=== PATIENT | female | born 1935 | race Caucasian/White ===

== ENCOUNTER 2018-01-14 07:16 | Inpatient (IN) ==
[~2018-01-14 07:16] MED LIST: Vancomycin 1,000 MG, Sodium Chloride IRRigation 1,000 ML IR ONE
[2018-01-14] MEDS ORDERED: CeFAZolin Syr 2,000MG/20 ML 2,000 MG/20 ML SYRINGE IVPB ONE (07:58)
[2018-01-14] MEDS ORDERED: Albuterol 2.5 MG/3 ML NEBULIZER IH ONE ×2 (07:58→13:42)
[2018-01-14] MEDS ORDERED: Ringers Solution, Lactated 1,000 ML IVC SCH (08:00)
--- NOTE | 2018-01-14 08:04 | History & Physical Report ---
Date of Encounter: 01/14/18 Time of Encounter: 08:00 24 Hour HP Update - Instructions Instructions: If the History and Physical is less than 30 days old and was completed prior to A.M. admission and or procedure and has NOT been updated on calendar day of procedure please complete this update prior to performing procedure. - Update Patient reports changes in Medical Condition: No Changes in examination, assessment, or condition: No Changes in Medication: No Preop tests/diagnostics Reviewed: Yes Surgery Remains Indicated: Yes Consent for Planned Operative Procedure(s) Verified: Yes - Pre-Operative Checklist Preoperative Checklist Indicated: Yes Prophylactic Antibiotic Ordered: Yes (Vancomycin due to MRSA risk) Home Medications Include Beta Brina: No Beta Brina Taken Today (Day of Surgery): No Beta Brina Taken Yesterday (Day Prior to Surgery): No Is VTE Prophylaxis Indicated?: Yes
[2018-01-14] MEDS ORDERED: Heparin 1,000 UNITS/500 mL 1,500 ML ONE (08:06)
--- NOTE | 2018-01-14 08:41 | Anesthesia Evaluation PreOp ---
Date of Encounter: 01/14/18 Time of Encounter: 08:39 - Past History Planned Operation: Fem-Fem bypass Cardiac History: HTN, Hyperlipidemia, Cardiac Surgery (CABG x 5 2009), Cardiac Stent, Other (PVD/PAD several stents pt unsure of locations. 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: Other (anxiety, depression) Other Medical History: Thyroid (hypo), Other (RA with good ROM neck (steroids 2017)) Anesthesia History: No Prior Anesthetic Complications, Past Anesthesia : No Alcohol Use: none Drug use: none Medications and Allergies ALPRAZolam [Xanax 0.5 MG Tablet] 0.5 mg PO BID 01/06/18 [History] Atorvastatin [Lipitor] 40 mg PO DAILY 01/06/18 [History] Azathioprine [Imuran] 50 mg PO BID 01/06/18 [History] Clopidogrel [Plavix] 75 mg PO DAILY 01/06/18 [History] Levothyroxine [Synthroid] 125 mcg PO QAM 01/06/18 [History] amLODIPine [Norvasc] 10 mg PO DAILY 01/06/18 [History] Nitroglycerin [Nitrostat] 0.4 mg SL Q5M PRN 01/14/18 [History] Psyllium Husk [Metamucil] 660 gm PO DAILY 01/14/18 [History] 3 Allergy/AdvReac Type Severity Reaction Status Date / Time Iodinated Contrast- Oral and Allergy Hives Verified 01/14/18 07:50 IV Dye - Meds/Allergy Pre-op Review Medications Reviewed: Yes Allergies Reviewed: Yes Beta Blockers on Current Med List: No Anesthesia Results - Labs Laboratory Tests 12/31/17 12/31/17 12/31/17 11:49 11:49 11:49 WBC 4.3 Hgb 13.7 Hct 41.8 Plt Count 267 PT 11.0 INR 1.0 APTT 37.9 H Sodium 137 Potassium 4.5 Chloride 102 Carbon Dioxide 31 H BUN 14 Creatinine 0.65 Est GFR (Non-Af Amer) > 60 - Imaging EKG: report reviewed, image reviewed, other (LBBB) Additional studies: Stress test 10/2017 no ischemia Carotid U/S 2017 R side 60-79% stenosis 10/2017 Impressions: LVEF 55%. Normal LV chamber size and function. Mild concentric left ventricular hypertrophy. Mild left ventricular diastolic dysfunction. Atypical septal motion consistent with post-operative status. Normal right ventricular structure and function. No evidence of pulmonary hypertension. No significant valvular dysfunction. Left Ventricular Wall Motion: Rest Echo Findings All wall segments showed normal motion. Findings: Study Quality * Technically adequate exam. ECG Findings * Normal sinus rhythm. Left Ventricle * LVEF 55%. * Normal LV chamber size and function. * Mild concentric left ventricular hypertrophy. * Mild left ventricular diastolic dysfunction. * Atypical septal motion consistent with post-operative status. Right Ventricle * Normal right ventricular structure and function. Left Atrium * Mildly dilated left atrium. Right Atrium * Normal right atrial size. Aortic Valve * Trileaflet aortic valve. * Mildly calcified aortic valve leaflets. * No aortic regurgitation. * No aortic stenosis. Mitral Valve * Mild mitral annular calcification. * No mitral stenosis. * No mitral regurgitation. Tricuspid Valve * Normal tricuspid valve structure and function. * Trace tricuspid regurgitation. * No evidence of pulmonary hypertension. Pulmonic Valve * Normal pulmonic valve structure and function. * No pulmonic regurgitation. Aorta * Normally sized aortic root. Pericardium * The pericardium appears normal. IVC * Normal IVC dimensions and inspiratory collapse. Pulmonary Artery * Normal visualized portions of the main pulmonary artery. Angiogram Impressions: The bilateral renal arteries are patent. The aorta is hemodynamically well maintained without stenosis. A pre-existing right common iliac artery stent is patent. The right external iliac artery is patent. The right common iliac artery is patent The right superficial femoral artery is occluded and reconstitutes at the above-knee popliteal artery. The right anterior tibial artery is occluded beyond its origin. The right tibioperoneal trunk, posterior tibial and peroneal arteries are patent. A pre-existing left common iliac artery stent is occluded. A pre-existing left external iliac artery stent is patent. A pre-existing left common femoral artery stent has a 95% stenosis at the distal portion. A pre-existing left superficial femoral artery stent is patent. A pre-existing left popliteal artery stent is occluded. The left popliteal artery reconstitutes below the knee. The left anterior tibial artery is occluded. The left peroneal artery is not clearly visualized. The left posterior tibial artery is patent. No complications. Anesthesia Exam Vital Signs/O2 Sat/Glucose, Most Recent Temp Pulse Resp BP Pulse Ox 97.7 F 49 18 131/59 99 01/14/18 08:24 01/14/18 08:24 01/14/18 08:24 01/14/18 08:24 01/14/18 08:24 Height: 1.63 Weight: 65 kg NPO (# of Hours): > 8 hr - HEENT Pupil (Motor): Pupils equal Mallampati: II Denture Type: Upper: Complete, Lower: Complete Oral Opening: Greater than 3 - SITE WORKER LOC: Oriented SITE WORKER Motor: Normal RUE, Normal LUE, Normal RLE, Normal LLE, Normal Face SITE WORKER Sensory: Normal: RUE, LUE, RLE, LLE, Face - Cardiac Rhythm: Regular Murmur: None - Pulmonary Breath Sounds: bilateral Clear Respiratory Effort: Symmetrical Anesthesia Assess/Plan ASA Score: 4 Modified Ray Scale for Level of Consciousness: Cooperative, oriented, and tranquil Anesthetic Plan: General Monitoring Plan: Standard Monitors, A-Line Recovery Plan: PACU
[2018-01-14] MEDS ORDERED: Acetaminophen IV 1,000 MG/100 ML INFUS..BTL ONE (08:59)
[2018-01-14] MEDS ORDERED: Famotidine 20 MG/2 ML VIAL ONE (08:59)
[2018-01-14] MEDS ORDERED: Vancomycin 1,000 MG VIAL ONE (09:50)
[2018-01-14 11:21] LABS: ABG Base Excess 1 mEq/L (-2 to 3); ABG Chloride 106 mEq/L (98-107); ABG Glucose 127 mg/dL (60-95); ABG HCO3 27 mEq/L (21-27); ABG Ionized Calcium 1.16 mmol/L (1.15-1.35); ABG Oxygen Saturation 100 % (95-98); ABG PCO2 44 mmHg (35-45); ABG PH 7.39 pH Units (7.32-7.45); ABG PO2 415 mmHg (85-104); ABG TCO2 28 mEq/L (20-26)
[2018-01-14] MEDS ORDERED: Protamine Sulfate 50 MG/5 ML VIAL IVP ONE (13:11)
[2018-01-14] MEDS ORDERED: Ondansetron 4 MG/2 ML VIAL IVP ONE (13:42)
[2018-01-14] MEDS ORDERED: *HR* HYDROmorphone 2 MG TABLET PO PRN (13:42)
[2018-01-14] MEDS ORDERED: *HR* OxyCODONE Immed Rel 5 MG TABLET PO PRN ×2 (13:42→15:02)
--- NOTE | 2018-01-14 13:58 | Operative Note ---
Date of procedure: 01/14/18 Pre-op diagnosis: Peripheral vascular disease with disabling claudication Post-op diagnosis: same Procedure: 1. Right common femoral to left common femoral artery bypass with 6 mm ring reinforced PTFE graft. 2. Right common femoral artery endarterectomy. 3. Left common femoral artery and deep femoral artery endarterectomy. Complications: None Surgeon: Brent Walsh Was there an patent legal assistant present: Yes Scenic Artist: Anuj Odonnell Estimated blood loss (cc): 350 Specimen: Femoral plaque Condition: stable Disposition: PACU Procedure in Detail: Indications: The patient is an 82 year old female with a history of hypertension, hyperlipidemia, coronary artery disease, carotid stenosis and peripheral vascular disease with disabling claudication. The patient is undergone multiple prior angiograms and heart catheter at another facility. She said multiple prior left lower extremity stent placement. She underwent an angiogram and was found have occlusion of her iliac stents. Revascularization was recommended to reduce her disabling claudication. Procedure: The patient was identified in the preoperative area. The risks, benefits, and alternatives of the procedure were discussed. All questions were answered. The patient was taken to the operating room and placed in supine position on the operating room table. After the induction of general endotracheal anesthesia, he was cleaned and draped in normal sterile fashion. An oblique incision was made over the right groin sharply. Hemostasis was obtained with electrocautery. Through a process of blunt, sharp and electrocautery dissection, the distal right external iliac artery and femoral arteries were dissected circumferentially and surrounded with vessel loops. Of note significant chronic inflammatory changes as well as evidence of prior closure devices are present along the right femoral vessels. In addition several Prolene sutures were also noted to be present as well as hemoclips has evidence of prior arterial repair. An oblique incision was then made over the left groin sharply. Hemostasis was obtained with electrocautery. Through a process of blunt, sharp, and electrocautery dissection, the left femoral vessels were dissected circumferentially and surrounded with vessel loops. Significant inflammatory changes were noted along the left femoral vessels. In addition multiple sutures related to prior closure device placement were noted. A graft was tunneled between the right and left femoral incisions. The patient received 5000 units of intravenous heparin and additional heparin throughout the procedure to maintain adequate anticoagulation. A longitudinal arteriotomy was made in the right common femoral artery and extended to the origin of deep femoral artery. Strong pulsatile flow was noted from the external iliac artery. Extensive, significantly occlusive femoral artery plaque was identified. Using a dental freer, a right common femoral artery endarterectomy was then performed. The endpoints was inspected and no elevated flap was noted. The lumen was flushed with heparinized saline. The graft was cut to fit the arteriotomy and then sutured in place with a running 6- 0 Prolene. The vessels were flushed through the graft. Heparinized saline was infused into the graft lumen. The graft was clamped with an atraumatic clamp. Flow was restored in the left femoral vessels. A longitudinal arteriotomy was then made in the left common femoral artery and then extended into the deep femoral artery. An occlusive right common and deep femoral artery plaque was encountered. Release of the vessel loop revealed limited antegrade flow and sluggish retrograde left deep femoral artery flow. Using a dental freer, a left common femoral artery endarterectomy and a left deep femoral artery endarterectomy were performed. Proximal and distal endpoints were inspected and no elevated flaps were noted. Significant retrograde flow was noted through the deep femoral artery. The distal end of the graft was then cut to fit the arteriotomy. The graft was anastamosed with a running 6-0 Prolene. Prior to completing the anastamosis, the right femoral vessels were flushed through the graft anastamosis and heparin was infused into the lumen. The anastamosis was completed and flow was restored in the right lower extremity. Thrombin and gelfoam were used at the proximal anastamosis. Polyphasic signals were noted distal to the anastamoses. The wounds were irrigated with antibiotic-containing saline. Platelet rich and platelet poor plasma were infused into the wounds. Meticulous hemostasis was obtained throughout the wound with electrocautery. Wounds were reapproximated with layers of 2-0 and 3-0 Vicryl. Skin was reapproximated with 3-0 Monocryl. Sterile dressing was applied. The patient was extubated and taken to recovery room in stable condition.
[2018-01-14] MEDS: *HR* Morphine 2 MG/ML SYRINGE IVP PRN ×3 (14:09→14:33)
--- NOTE | 2018-01-14 14:43 | Anesthesia Evaluation Post Op ---
Date of Encounter: 01/14/18 Time of Encounter: 14:40 - Vital Signs Vital Signs: Vital Signs/O2 Sat/Glucose, Most Current Temp Pulse Resp BP Pulse Ox 01/14/18 14:32 97.6 F 75 14 136/48 94 01/14/18 14:22 78 14 118/46 97 01/14/18 14:12 74 14 132/51 95 01/14/18 14:02 97.4 F L 82 16 116/53 99 - Lungs Lungs: Clear Ascult./Percussion - Airway Airway: Non-obstructed - Cardiovascular Regular Rate - Mental Status Mental Status: Alert & Oriented, Answers Appropriately - Pain Pain Scale: 0 - Nausea Vomiting Nausea Vomiting: Not Present - Hydration Hydration: Ice chips, Cornelius catheter - Discharge PostOp Status: Transfer Patient to floor
--- NOTE | 2018-01-14 14:49 | Operative Note ---
Date of procedure: 01/14/18 Pre-op diagnosis: Disabling claudication Post-op diagnosis: same Procedure: Bilateral common femoral artery endarterectomy Right to left femoral-femoral bypass graft with 6 mm PTFE Complications: None Anesthesia: GETA Surgeon: Brent Walsh Co-Surgeon: Anuj Odonnell Was there an assistant refinery operator present: No Estimated blood loss (cc): 350 Specimen: Femoral plaque Condition: stable Disposition: PACU Procedure in Detail: History Zeenat Dunbar is an 82-year-old white female with known severe peripheral vascular occlusive disease. She has undergone multiple previous endovascular interventions at an outside hospital. She now comes to the operating room for an inflow procedure as the left iliac system is occluded. Procedure After informed consent was obtained the patient was taken the operating room. General endotracheal anesthesia was established. The abdomen groin and upper thighs were sterilely prepped and draped. A timeout protocol was observed. A 2 surgeon approach was utilized for this procedure due to the patient's comorbid conditions. Also because of the need for complex intraoperative decision-making and to minimize palpitations associated with prolonged general anesthesia and blood loss. Oblique incisions were then made in the groin bilaterally. Dissection was carried down to the common femoral artery. The femoral artery was noted to be markedly diseased bilaterally. There is a very dense and expansive calcific plaque in the right femoral system. There is also significant plaque in the left common femoral system. A deep saphenous tunnel was created and then 5000 units of heparin was administered intravenously. After 3 minute delay the vessels were then clamped. Using an 11 blade knife and Stanley scissors both arteries were open on the anterior surface of the common femoral artery. A formal endarterectomy was then performed of each vessel. On the right side there was a reticulating dense and expansive plaque. This required extension of the plaque removal up to the level of the inguinal ligament and distally to the femoral bifurcation. After the endarterectomy the vessels were carefully inspected for any residual debris. With this done the femoral-femoral anastomosis was initiated. The donor site was the right side and so the anastomosis was initiated with this vessel first. This was done in an endograft to side of artery configuration using 6-0 Prolene suture. Once the length of the graft could be accurately assessed the graft was trimmed and then the left femoral anastomosis was initiated for the recipient site. After appropriate backbleeding and flushing the graft was opened. Pulsatile flow was then restored into the left lower extremity. Patient had significant amount of bleeding from the needle sites bilaterally. This required the administration of protamine as well as multiple applications of topical thrombostatic agents. Eventually the hemostasis was secured and the wounds were irrigated with antibiotic-containing solution. There were then closed in layers using absorbable suture. Dry sterile dressings were applied. Patient was extubated in the operating room and taken to the recovery room in stable condition. There were no intraoperative complications.
[2018-01-14] MEDS ORDERED: Naloxone 0.4 MG/ML INJ IVP PRN (15:02)
[2018-01-14] MEDS ORDERED: OXYCODONE Oral CONC 10 MG/0.5 ML ORAL.SYG SL PRN ×2 (15:02)
[2018-01-14] MEDS ORDERED: Nitroglycerin 0.4 MG TAB.SUBL SL PRN (15:02)
[2018-01-14] MEDS ORDERED: *HR* Labetalol 20 MG/4 ML SYRINGE IVP PRN (15:02)
[2018-01-14] MEDS ORDERED: *HR* HYDROcodone/Acet 5/325 mg TABLET PO PRN (15:02)
[2018-01-14] MEDS ORDERED: Acetaminophen 325 MG TABLET PO PRN (15:02)
[2018-01-14] MEDS ORDERED: Ondansetron 4 MG/2 ML VIAL IVP PRN (15:02)
[2018-01-14] MEDS ORDERED: 0.9 % Sodium Chloride 1,000 ML IVC SCH (15:02)
[2018-01-14] MEDS: *HR* Metoprolol 5 MG/5 ML VIAL IVP SCH (16:51)
[2018-01-14] MEDS ORDERED: Vancomycin 1,000 MG in D5% in Water 250 ML IVPB ONE ×2 (20:30→21:45)
[2018-01-14] MEDS: ALPRAZolam 0.5 MG TABLET PO SCH (21:22)
[2018-01-15] MEDS: *HR* Metoprolol 5 MG/5 ML VIAL IVP SCH ×2 (00:08→06:06)
[2018-01-15 03:57] LABS: Basophils % 0.1 %; Hemoglobin 9.3 g/dL (11.5-15.4); Immature Granulocytes % 0.7 % (0-4); Lymphocytes # 0.5 K/mcL (0.6-4.6); Lymphocytes % 5.8 %; Mean Corpuscular HGB Conc 33.2 g/dL (31.6-35.5); Mean Corpuscular Hemoglobin 33.6 pg (28.0-33.3); Mean Corpuscular Volume 101.1 fL (83.0-100.0); Mean Platelet Volume 9.3 fL (9.4-12.4); Monocytes # 0.7 K/mcL (0.0-1.3); Monocytes % 9.1 %; Neutrophils # 6.8 K/mcL (1.6-8.9); Platelet Count 197 K/mcL (140-400); Red Blood Count 2.77 M/mcL (3.82-4.97); Red Cell Distribution Width 14.6 % (11.5-14.5); Segmented Neutrophils % 84.3 %
[2018-01-15 04:15] LABS: BUN/Creatinine Ratio 18 (6-26); Blood Urea Nitrogen 12 mg/dL (8-23); Calcium 8.1 mg/dL (8.6-10.3); Carbon Dioxide 23 mEq/L (23-29); Chloride 104 mEq/L (98-107); Glucose 170 mg/dL (70-105); Osmolality,Calculated 284 (280-300); Potassium 4.6 mEq/L (3.5-5.1); Sodium 135 mEq/L (136-145); eGFR For Non-African Americans > 60 (> 60)
[2018-01-15] MEDS ORDERED: *HR* Heparin 5,000 UNIT/ML VIAL SQ SCH ×2 (06:00)
--- NOTE | 2018-01-15 06:59 | Discharge Summary ---
Orders not resulted at time of discharge: Pending orders 01/14/18 14:06 Surgical Pathology [PTH] Routine Date of Encounter: 01/15/18 Time of Encounter: 07:40 - Discharge Diagnosis (1) Atherosclerosis of [place] arteries of extremities with intermittent claudication, bilateral legs Priority: Primary Status: Chronic Comments: The patient is postoperative day #1 after a femoral endarterectomy and femorofemoral bypass. She is tolerating diet well. She reports adequate pain control. She is ambulating without difficulty. She will be discharged to home in stable condition today. (2) Essential hypertension Priority: Secondary Status: Chronic Comments: She was counseled regarding atherosclerotic risk factor reduction. (3) Mixed hyperlipidemia Priority: Secondary Status: Chronic (4) CAD (coronary artery disease), [place] coronary artery Priority: Secondary Status: Chronic Qualifiers: [place] vs. transplanted heart: [place] heart Associated angina: without angina Qualified Code(s): I25.10 - Atherosclerotic heart disease of [place] coronary artery without angina pectoris (5) Acute blood loss anemia Priority: Secondary Status: Acute Comments: The patient has acute expected postoperative blood loss anemia. She is hemodynamically stable without evidence of ongoing blood loss. (6) Carotid stenosis, right Priority: Secondary Status: Chronic - Hospital Course Hospital course: Ms. Dunbar is a 82 year old female with multiple medical comorbidities who was found have a left iliac occlusion. The patient was admitted on 01/14/2018. She underwent a bilateral femoral endarterectomy as well as a femoral to femoral artery bypass. He tolerated the procedure well. On postoperative day # 1 she was ablated without difficulty. Her pain was well-controlled. She has no evidence of hematomas. Her incisions were healing well. She is tolerating a diet. She was discharged home in stable condition on postoperative day #1 without complications. - Time Spent with Patient Total time spent providing and/or coordinating discharge services: - Discharge Medications Prescriptions: OxyCODONE/APAP 5/325 [Percocet 5/325 MG] 1 each PO Q6HR PRN 5 Days #20 tablet PRN Reason: Postoperative pain Home Medications: ALPRAZolam [Xanax 0.5 MG Tablet] 0.5 mg PO BID 01/06/18 [History] Atorvastatin [Lipitor] 40 mg PO DAILY 01/06/18 [History] Azathioprine [Imuran] 50 mg PO BID 01/06/18 [History] Clopidogrel [Plavix] 75 mg PO DAILY 01/06/18 [History] Levothyroxine [Synthroid] 125 mcg PO QAM 01/06/18 [History] amLODIPine [Norvasc] 10 mg PO DAILY 01/06/18 [History] Nitroglycerin [Nitrostat] 0.4 mg SL Q5M PRN 01/14/18 [History] Psyllium Husk [Metamucil] 660 gm PO DAILY 01/14/18 [History] OxyCODONE/APAP 5/325 [Percocet 5/325 MG] 1 each PO Q6HR PRN 5 Days #20 tablet [Rx] Allergies/Adverse Reactions: 3 Allergy/AdvReac Type Severity Reaction Status Date / Time Iodinated Contrast- Oral and Allergy Hives Verified 01/14/18 07:50 IV Dye Date of admission: 01/14/18 15:06 Primary care physician: Juancho Patel Procedure(s) Performed: Bilateral femoral endarterectomy and femoral to femoral artery bypass. Discharging clinician: Brent Walsh Anticipated date of discharge: 01/15/18 Exam Vital Signs, Last 4 Hours Temp Pulse Resp BP Pulse Ox 01/15/18 04:13 98.1 F 53 15 130/50 97 General: Present: Conversant, No Apparent Distress HEENT: Present: Pupils equal Cardiac: Present: Reg Rate and Rhythm Lungs: Present: Normal Breath Sounds Neuro: Present: Alert and responsive, No focal deficits noted, Motor nerves grossly intact, Sensory nerves grossly intact Abdomen: Present: Soft Vascular: Present: Normal capillary refill, Surgical incisions (Incisions clean , dry and intact without erythema or drainage, no hematoma). Absent: Cyanosis, Edema Skin: Present: No rashes noted on visualized skin - Patient Status Disposition: Home, Self-Care Condition: Good Functional capacity at discharge: independent ambulation Overall status at discharge: patient is back to baseline - Discharge Instructions Instructions: Oxycodone/Acetaminophen (By mouth) Follow Up With: Juancho Patel DO [Primary Care Provider] - (Office states patient must call once home to make hospital follow-up appointment) Brent Walsh MD [Partnered Physician] - 02/03/18 2:40 pm Additional Instructions: May remove bandages and shower on 01/16/2018. Wash wounds gently and pat to dry. Applied dry bandages to bilateral groin incisions daily for 7 days. No tub baths or swimming until 02/23/2018. Call Dr. Walsh at [phone] with questions or concerns. - Diet and Activity Activity: increase activity as tolerated Diet: advance to your usual diet
[2018-01-15 07:22] VITALS: BP 122/45
[2018-01-15] MEDS: Psyllium 1 PACKET POWD.PACK PO SCH ×2 (08:27→08:30)
[2018-01-15] MEDS: ALPRAZolam 0.5 MG TABLET PO SCH (08:27)
[2018-01-15] MEDS ORDERED: amLODIPine 5 MG TABLET PO SCH (09:00)
== END 2018-01-15 09:58 | disposition home or self-care (01) | DRG 253 ==
LOC: SAMDAY 07:16 → 2NNU 15:06
PROVIDERS: ADMIT Surgery; ATTEND Surgery
PROC: VASFFBG (ICD-10-PCS; 2018-01-14 09:30)

== ENCOUNTER 2018-08-03 15:51 | Inpatient (IN) ==
[2018-08-03] MEDS ORDERED: Ipratropium/Albuterol Neb 3 ML IH ONE (16:55)
[2018-08-03] MEDS ORDERED: Furosemide 40 MG/4 ML VIAL IVP ONE (16:55)
[2018-08-03 18:40] LABS: INR 1.1; Prothrombin Time 12.3 Seconds (9.4-12.1)
[2018-08-03 18:43] LABS: Activated Partial Thrombo Time 36.3 Seconds (26.0-36.0)
[2018-08-03] MEDS ORDERED: Furosemide 40 MG TABLET PO ONE (18:45)
[2018-08-03 18:48] LABS: BUN/Creatinine Ratio 22 (6-26); Blood Urea Nitrogen 12 mg/dL (8-23); Calcium 9.1 mg/dL (8.6-10.3); Carbon Dioxide 32 mEq/L (23-29); Chloride 103 mEq/L (98-107); Glucose 115 mg/dL (70-105); Osmolality,Calculated 295 (280-300); Potassium 3.7 mEq/L (3.5-5.1); Sodium 142 mEq/L (136-145); Troponin I < 0.03 ng/mL (< 0.04); eGFR For Non-African Americans > 60 (> 60)
--- NOTE | 2018-08-03 19:10 | Emergency Department Note ---
Disposition Clinical Impression: Shortness of breath, Hypoxia Congestive heart failure Qualifiers: Heart failure type: unspecified Heart failure chronicity: unspecified Qualified Code(s): I50.9 - Heart failure, unspecified Pulmonary edema Qualifiers: Chronicity: acute Qualified Code(s): J81.0 - Acute pulmonary edema Anemia Qualifiers: Anemia type: unspecified type Qualified Code(s): D64.9 - Anemia, unspecified Disposition: Admitted As Inpatient Condition: Fair Referrals: Juancho Patel DO [Primary Care Provider] - Forms: ED Satisfaction Letter Time of Disposition: 20:34 SOB HPI - General Chief Complaint: ED Shortness of Breath/Dyspnea Stated Complaint: CHF/PEEWEE Time Seen by Provider: 08/03/18 16:28 Source: patient Mode of arrival: ambulatory Limitations: no limitations Nursing Notes Reviewed: Yes Vital Signs Reviewed: Yes - History of Present Illness Patient presents emergency room the care of the family for evaluation of shortness of breath and fluid accumulation with weight gain. Patient denies any falls trauma or injury. Denies any headache or vision change. Patient denies any nausea vomiting or diarrhea. He has a history of congestive heart failure as well as difficulty with breathing. She feels like it has progressed likely over the last several days to weeks and came into the emergency room for evaluation. Pt Subjective Complaint: shortness of breath Onset (ago): day(s) Severity: moderate Improves with: nothing Worsens with: lying flat, exertion, coughing Known history of: congestive heart failure, other Associated symptoms: Reports: orthopnea Treatment prior to arrival: oxygen Cough present: Yes Cough Description: Voluntary Cough Frequency: Intermittent Sputum production: No - Related Data Home Medications Medication Instructions Recorded Confirmed ALPRAZolam [Xanax 0.5 MG Tablet] 0.5 mg PO BID 01/06/18 01/14/18 Atorvastatin [Lipitor] 40 mg PO DAILY 01/06/18 01/14/18 Azathioprine [Imuran] 50 mg PO BID 01/06/18 01/14/18 Clopidogrel [Plavix] 75 mg PO DAILY 01/06/18 01/14/18 Levothyroxine [Synthroid] 125 mcg PO QAM 01/06/18 01/14/18 amLODIPine [Norvasc] 10 mg PO DAILY 01/06/18 01/14/18 Nitroglycerin [Nitrostat] 0.4 mg SL Q5M PRN 01/14/18 01/14/18 Psyllium Husk [Metamucil] 660 gm PO DAILY 01/14/18 01/14/18 Previous Rx's Medication Instructions Recorded OxyCODONE/APAP 5/325 [Percocet 1 each PO Q6HR PRN 5 Days #20 01/15/18 5/325 MG] tablet Allergies Allergy/AdvReac Type Severity Reaction Status Date / Time Iodinated Contrast- Oral and Allergy Hives Verified 06/24/18 15:08 IV Dye All systems ED: reviewed and negative except as stated. Review of Systems: As Per HPI Constitutional: Denies: fever, chills, weakness ENT ED: Denies: congestion Cardiovascular: Reports: dyspnea on exertion, orthopnea, edema. Denies: chest pain, palpitations, syncope Respiratory: Reports: dyspnea, wheezes. Denies: cough, hemoptysis Gastrointestinal: Denies: abdominal pain, nausea, vomiting, diarrhea Genitourinary: Denies: urgency, dysuria, frequency Musculoskeletal: Denies: back pain, neck pain Integumentary: Denies: rash Neurological: Denies: headache Endocrine: Denies: fatigue Past Medical History - Past Medical History Attestation: Yes The following information was validated with the patient. Source: patient Medical history: Reports: CHF, coronary artery disease, CVA, hyperlipidemia, hypertension, thyroid disease Surgical history: Reports: appendectomy, carotid endarterectomy, cholecystectomy, coronary bypass (CABG), herniorrhaphy, hysterectomy Psychiatric history: Reports: depression - Social History Smoking Status: Former smoker Smokeless Tobacco Status: No Alcohol use: Reports: none Drug use: Reports: none Physical Exam - General Limitations: no limitations General appearance: alert, in no apparent distress - Head Head exam: atraumatic, normocephalic, normal inspection - ENT ENT exam: normal exam, normal oropharynx, mucous membranes moist - Neck Neck exam: Present: normal inspection, full ROM, trachea midline - Chest Chest inspection: Present: normal inspection, symmetric chest wall rise. Absent: tenderness - Respiratory Respiratory exam: Present: respiratory distress, accessory muscle use. Absent: stridor - Cardiovascular Cardiovascular exam: Present: regular rate, normal rhythm, normal heart sounds - Abdominal Exam Abdominal exam: Present: soft, Non-Tender, normal bowel sounds. Absent: tenderness, distention, guarding, rebound, rigidity, Andrade's sign, Rovsing's sign, tenderness at McBurney's Point - Extremities Exam Extremities exam: Present: normal inspection, full ROM, normal capillary refill, pedal edema. Absent: tenderness, joint swelling - Back Exam Back exam: Present: normal inspection, full ROM. Absent: tenderness, CVA tenderness (R), CVA tenderness (L) - Neurological Exam Neurological exam: Present: alert, oriented X3, CN II-XII intact, normal gait - Psychiatric Psychiatric exam: Present: normal affect - Skin Skin exam: Present: warm, dry, intact, normal color Course Course Narrative: Patient seen and examined the time of arrival. See history of present illness. 82-year-old female presents emergency room with approximately a 20 pound weight gain along with increase conversational, exertional, positional shortness of breath. She has a long-standing history of congestive heart failure. She denies any recent illnesses. She has not had any falls trauma or injury. Currently denying fevers or chills. She does not have any active chest pain. She does just describe a chest heaviness. No headache or vision changes this time. She has not fallen or injured herself. Patient has not traveled outside the country and has no specific sick contacts at this point. Patient is sitting comfortably in the bed. She is conversational without any definitive signs of conversational dyspnea. She did have some exertional dyspnea here in the emergency room on initial presentation. Her pulse ox was 88% on room air. Patient typically does not use oxygen at home except as needed. Vital signs otherwise stable. Patient is alert she is oriented. She speaks in full sentences. Denies any nausea vomiting. Lungs are clear heart is regular. No stridor no trismus. Intermittent crackles are noted on expiration. Abdomen is soft nontender nondistended with no guarding no rigidity and no peritoneal symptoms at this point. Patient is otherwise stable with what appears to be a cute exacerbation of congestive heart failure causing shortness of breath and hypoxia. Other underlying etiology will be addressed and reviewed at this time. Disposition to be determined workup and treatment course have been established. Aspirin will be given for symptomatically control along with appropriate medical treatment including IV Lasix. - Reevaluation(s) Reevaluation #1: Patient had difficult IV access. She is refusing to have an IV started this point. By mouth Lasix will be given. Labs will be collected and then disposition will be determined. Patient does have an understanding that if she does not have the laboratory workup completed we do not have the ability to address any other potential presenting medical issues. Patient understands this and still requesting not to have it done. Labs will be collected and resulted and disposition determined. Patient has not shown any acute signs of clinical decompensation at this point. Patient does have persistent vaginal bleeding for the last several weeks. This could account for the low hemoglobin at this time. Occult testing was deferred by rectal examination this point. Patient does have hemorrhoids. She will wait to have a bowel movement on the hospital to collect occult stool sample this time. Patient will be discussed with the on- call hospitalist for admission for CHF exacerbation, hypoxia and shortness of breath. Time: 16:30 Reevaluation #2: Patient is deferring on rectal examination this time. She will attempt to have a bowel movement here in the emergency department or in the hospital setting. IV access has been obtained. The patient was discussed with the on-call hospitalist Dr. Barclay. No other recommendations or concerns are noted at this point. Patient will be admitted for symptomatically control congestive heart failure. Corresponding will be established. Patient will be monitored here in the emergency department until the admission process is completed. Time: 20:33 Vital Signs Temperature 97.9 F 08/03/18 16:02 Pulse Rate 59 08/03/18 16:02 Respiratory Rate 16 08/03/18 16:02 Blood Pressure 147/61 08/03/18 16:02 O2 Sat by Pulse Oximetry 92 08/03/18 16:02 Temperature 97.9 F 08/03/18 16:02 Pulse Rate 59 08/03/18 16:02 Respiratory Rate 16 08/03/18 17:12 Blood Pressure 147/61 08/03/18 16:02 O2 Sat by Pulse Oximetry 97 08/03/18 17:12 Oxygen Delivery Oxygen Delivery Room Air Shortness of Breath/Dyspnea - MDM Narrative Medical decision making narrative: Shortness of breath, orthopnea, fluid overload - Medical Records Medical records reviewed: Yes I reviewed the patient's medical records. - Lab Data Lab results reviewed: Yes I reviewed the patient's lab results. Result diagrams: 08/03/18 18:44 08/03/18 18:10 Lab Results 08/03/18 08/03/18 08/03/18 Range/Units 18:10 18:10 18:10 WBC (4.3-11.1) K/mcL RBC (3.82-4.97) M/mcL Hgb (11.5-15.4) g/dL Hct (35.3-44.9) % MCV (83.0-100.0) fL MCH (28.0-33.3) pg MCHC (31.6-35.5) g/dL RDW (11.5-14.5) % Plt Count (140-400) K/mcL MPV (9.4-12.4) fL Immature Gran % (0-4) % Seg Neutrophils % % Lymphocytes % % Monocytes % % Eosinophils % % Basophils % % Neutrophils # (1.6-8.9) K/mcL Lymphocytes # (0.6-4.6) K/mcL Monocytes # (0.0-1.3) K/mcL Eosinophils # (0.0-0.6) K/mcL Basophils # (0.0-0.2) K/mcL Nucleated RBCs/100 WBC (0) /100 WBC PT 12.3 H (9.4-12.1) Seconds INR 1.1 APTT 36.3 H (26.0-36.0) Seconds Sodium 142 (136-145) mEq/L Potassium 3.7 (3.5-5.1) mEq/L Chloride 103 (98-107) mEq/L Carbon Dioxide 32 H (23-29) mEq/L BUN 12 (8-23) mg/dL Creatinine 0.55 L (0.60-1.20) mg/dL Est GFR ( Amer) > 60 (> 60) Est GFR (Non-Af Amer) > 60 (> 60) BUN/Creatinine Ratio 22 (6-26) Glucose 115 H (70-105) mg/dL Calculated Osmolality 295 (280-300) Lactic Acid 0.7 (0.5-2.2) mmol/L Calcium 9.1 (8.6-10.3) mg/dL Troponin I < 0.03 (< 0.04) ng/mL Specimen Rejected 08/03/18 08/03/18 08/03/18 Range/Units 18:10 18:44 18:44 WBC 3.6 L (4.3-11.1) K/mcL RBC 2.53 L (3.82-4.97) M/mcL Hgb 8.6 L (11.5-15.4) g/dL Hct 26.9 L (35.3-44.9) % MCV 106.3 H D (83.0-100.0) fL MCH 34.0 H (28.0-33.3) pg MCHC 32.0 (31.6-35.5) g/dL RDW 21.5 H (11.5-14.5) % Plt Count 144 (140-400) K/mcL MPV 9.9 (9.4-12.4) fL Immature Gran % 3.0 (0-4) % Seg Neutrophils % 62.9 % Lymphocytes % 15.7 % Monocytes % 14.3 % Eosinophils % 3.3 % Basophils % 0.8 % Neutrophils # 2.3 (1.6-8.9) K/mcL Lymphocytes # 0.6 (0.6-4.6) K/mcL Monocytes # 0.5 (0.0-1.3) K/mcL Eosinophils # 0.1 (0.0-0.6) K/mcL Basophils # 0.0 (0.0-0.2) K/mcL Nucleated RBCs/100 WBC 0.8 H (0) /100 WBC PT (9.4-12.1) Seconds INR APTT (26.0-36.0) Seconds Sodium (136-145) mEq/L Potassium (3.5-5.1) mEq/L Chloride (98-107) mEq/L Carbon Dioxide (23-29) mEq/L BUN (8-23) mg/dL Creatinine (0.60-1.20) mg/dL Est GFR ( Amer) (> 60) Est GFR (Non-Af Amer) (> 60) BUN/Creatinine Ratio (6-26) Glucose (70-105) mg/dL Calculated Osmolality (280-300) Lactic Acid 0.9 (0.5-2.2) mmol/L Calcium (8.6-10.3) mg/dL Troponin I (< 0.04) ng/mL Specimen Rejected MCV Delta - Radiology Data Radiology results reviewed: Yes I reviewed the patient's radiology results. Chest x-ray is clinically stable at this time and no acute signs of pulmonary infiltrate or infection interstitial edema is noted consistent with pulmonary edema - EKG Data EKG attestation: Yes I reviewed and interpreted this EKG. EKG results narrative: EKG shows sinus rhythm. Heart rate of 56. QRS duration of 154. MS interval 167. QTC of 475. [place] is rightward deviated. Stable left bundle branch noted. No acute signs of ST segment elevation or abnormality. No acute signs of WPW or Brugada syndrome. Stable comparison ECG with no acute signs of morphology change at this time. Stable T-wave injury or lesions in 1, aVL V5 and V6. This is all similar comparison to previous EKG on 06/24/18
[2018-08-03 19:12] LABS: Basophils % 0.8 %; Eosinophils # 0.1 K/mcL (0.0-0.6); Eosinophils % 3.3 %; Hematocrit 26.9 % (35.3-44.9); Hemoglobin 8.6 g/dL (11.5-15.4); Lymphocytes # 0.6 K/mcL (0.6-4.6); Lymphocytes % 15.7 %; Mean Corpuscular Volume 106.3 fL (83.0-100.0); Mean Platelet Volume 9.9 fL (9.4-12.4); Monocytes # 0.5 K/mcL (0.0-1.3); Monocytes % 14.3 %; Neutrophils # 2.3 K/mcL (1.6-8.9); Nucleated Red Blood Cells 0.8 /100 WBC (0); Platelet Count 144 K/mcL (140-400); Red Blood Count 2.53 M/mcL (3.82-4.97); Red Cell Distribution Width 21.5 % (11.5-14.5); Segmented Neutrophils % 62.9 %
[2018-08-03] MEDS ORDERED: Nitroglycerin 0.4 MG TAB.SUBL SL PRN (19:12)
[2018-08-03] MEDS ORDERED: Aspirin 81 MG TAB.CHEW PO STA (19:14)
[2018-08-03] MEDS ORDERED: Acetaminophen 325 MG TABLET PO PRN (21:42)
[2018-08-03] MEDS ORDERED: Naloxone 0.4 MG/ML INJ IVP PRN (21:42)
--- NOTE | 2018-08-03 22:14 | Internal Med History&Physical ---
<Sangeeta Gil - Last Filed: 08/04/18 00:06> Date of Encounter: 08/04/18 Time of Encounter: 21:30 Internal Medicine - H&P: HPI Chief complaint: shortness of breath and swelling History of present illness: Ms. Day is a 82 year old female with past medical history of hypertension, hypothyroidism, CAD, hyperlipidemia, CHF who was presented to the ED complaining of worsening shortness of breath and lower extremity edema with 20 pound weight gain. He denies any significant pain or recent immobilization. She also associated fatigue ongoing for the past 2 months. She is denying orthopnea or PND. Reports shortness of breath is present at rest and with exertion and makes her easily exhausted. She is denying any heart palpitations. She also complained of two-week onset of urethral bleeding and has recently seen a urologist and is reported to have a UTI. She also has hemorrhoids and reportedly some bleeding due to active hemorrhoids. She denied previous diagnosis of anemia and denies occult blood loss. She reports stopping her levothyroxine 2 months ago on her own as she felt she did not need it anymore. Her symptoms have progressed after she stopped taking her levothyroxine. She denies being on Lasix outpatient. In the ED she was noted to have hemoglobin of 8.6 with low hematocrit and elevated MCV. She had a chest x-ray which showed pulmonary vascular congestion with pulmonary edema. She denies fever, chills, nausea, emesis, chest pain or abdominal pain. Past Med Surg Social Fam HX - Past Medical History Medical history: CHF, coronary artery disease, CVA, hyperlipidemia, hypertension, thyroid disease Additional medical history: depression. CAD. PAD. PVD. angina Psychiatric history: depression - Past Surgical History Surgical History: appendectomy, carotid endarterectomy, cholecystectomy, coronary bypass (CABG), herniorrhaphy, hysterectomy Additional surgical history: T&A. renal artery repair. Hernia repair - Social History Smoking Status: Former smoker Smokeless Tobacco Status: No Alcohol use: none Drug use: none - Family History Father Living Status: Hx Family Cardiac Disorders: Yes ([place]) Internal Medicine - H&P: Meds RX: ALPRAZolam [Xanax 0.5 MG Tablet] 0.5 mg PO BID 01/06/18 [History] RX: Clopidogrel [Plavix] 75 mg PO DAILY 01/06/18 [History] RX: Levothyroxine [Synthroid] 125 mcg PO QAM 01/06/18 [History] RX: amLODIPine [Norvasc] 10 mg PO DAILY 01/06/18 [History] RX: Polyethylene Glycol 3350 [MiraLAX] 17 gm PO BID 08/03/18 [History] Allergy/AdvReac Type Severity Reaction Status Date / Time Iodinated Contrast- Oral and Allergy Hives Verified 06/24/18 15:08 IV Dye All Systems PM: A 10-system review of systems was performed and is negative for pertinent findings except as documented above in the HPI. - Constitutional Constitutional: fatigue, malaise, no chills, no fever(s) - EENT Eyes: no change in vision, no pain Nose, mouth and throat: no dysphagia, no mouth pain, no sore throat - Cardiovascular Cardiovascular ROS IM: dyspnea, edema, no chest pain, no diaphoresis, no orthopnea, no palpitations, no paroxysmal nocturnal dyspnea - Respiratory Respiratory: dyspnea, dyspnea on exertion, no cough, no wheezing, no chest congestion - Gastrointestinal Gastrointestinal: no abdominal pain, no constipation, no diarrhea - Genitourinary Genitourinary: hematuria, no dysuria, no flank pain, no urinary incontinence - Musculoskeletal Musculoskeletal ROS IM: myalgias, no numbness, no stiffness - Integumentary Integumentary IM: no erythema, no rash - Neurological Neurological ROS: no abnormal gait, no numbness, no paresthesias, no weakness - Psychiatric Psychiatric: no anxiety, no depression - Endocrine Endocrine IM: fatigue, other (weight gain of 20 lbs) - Constitutional Vitals: Temp Pulse Resp BP Pulse Ox 97.9 F 59 18 161/56 95 08/03/18 16:02 08/03/18 21:17 08/03/18 21:17 08/03/18 21:17 08/03/18 21:17 Exam: Gen: Vitals noted. No acute distress. Appears comfortable. Eyes: anicteric sclerae, moist conjunctivae; no lid-lag; Pupils equal and reactive to light HENT: Atraumatic; oropharynx clear with moist mucous membranes and no mucosal ulcerations; normal hard and soft palate Neck: Trachea midline; supple, no thyromegaly or lymphadenopathy Cardiac: RRR, no murmur, +S1/S2. No JVD noted. Pulmonary: CTA bilaterally, no wheezes, rhonchi at all lung lobes, equal chest expansion Abdomen: soft, nontender, no guarding. No masses or hepatosplenomegaly MSK: ROM intact, no joint swelling noted Extremities: +1 pitting edema bilateral lower extremities, nontender calf Skin: Normal temperature, turgor; no rash, ulcers or subcutaneous nodules Neuro: moves all extremities, no focal deficits. Psych: Appropriate mood and behavior. A&Ox3 Internal Med - H&P Results - Labs CBC & Chem 7: 08/03/18 18:44 08/03/18 18:10 Labs: Short CBC 08/03/18 Range/Units 18:44 WBC 3.6 L (4.3-11.1) K/mcL Hgb 8.6 L (11.5-15.4) g/dL Hct 26.9 L (35.3-44.9) % Plt Count 144 (140-400) K/mcL Neutrophils # 2.3 (1.6-8.9) K/mcL BMP 08/03/18 18:10 Sodium 142 Potassium 3.7 Chloride 103 Carbon Dioxide 32 H BUN 12 Creatinine 0.55 L Glucose 115 H Calcium 9.1 Cardiac Enzymes 08/03/18 Range/Units 18:10 Troponin I < 0.03 (< 0.04) ng/mL - Impressions ITS Impressions Chest X-Ray 08/03/18 16:55 IMPRESSION: Congestive heart failure D/ / Fernando Michaels MD / Fernando Michaels MD Interpreting Provider: Fernando Michaels MD - Assessment and Plan (1) CHF exacerbation Current Visit: Yes Status: Acute Assessment and plan: Essentially with shortness of breath and lower extremity edema. Chest x-ray shows pulmonary congestion. BNP is not elevated at 599. There is echo was on 10/31/19 which showed EF of 55% with mild LVH and mild LV diastolic dysfunction Strict I's and O's Continue 40 mg IV Lasix daily We will repeat echo Daily weight check Fluid restriction diet of 1.5 L Qualifiers: Heart failure type: diastolic Qualified Code(s): I50.33 - Acute on chronic diastolic (congestive) heart failure (2) Lower extremity edema Current Visit: Yes Status: Acute Assessment and plan: Complaining of lower extremity edema ongoing for the past 2 weeks. Likely multifactorial she is on amlodipine and had stopped taking her home levo thyroxine. Also could be secondary to CHF her BNP is elevated. Hold amlodipine. Continue Lasix 40 mg IV daily Continue levothyroxine (3) Anemia Current Visit: Yes Status: Acute Assessment and plan: Noted to have anemia with hemoglobin 8.6 and MCV 106.3. Likely multifactorial she has bleeding hemorrhoids and hematuria. She reports that anemia is new. Due to macrocytic in nature could be secondary to chronic disease B12 and folate levels normal to high Would benefit from outpatient workup if her anemia does not resolve after treating hypothyroidism. Qualifiers: Anemia type: unspecified type Qualified Code(s): D64.9 - Anemia, unspecified (4) Hematuria Current Visit: Yes Status: Acute Assessment and plan: Complaining of hematuria ongoing for 2 weeks. She reports seeing a urologist today and was told she has a UTI. Is currently not on antibiotics. UA with cultures pending. She has a planned cystoscopy scheduled outpatient Qualifiers: Hematuria type: unspecified type Qualified Code(s): R31.9 - Hematuria, unspecified (5) Fatigue Current Visit: Yes Status: Acute Assessment and plan: Feeling of fatigue ongoing for the past 2 months likely secondary to anemia and hypothyroidism. She had stopped her levothyroxine 2 months ago. Anemia appears to be macrocytic with increased MCV. B12 and folate are within normal size levels TSH significantly elevated. Continue home levothyroxine. Qualifiers: Fatigue type: unspecified Qualified Code(s): R53.83 - Other fatigue (6) Hypothyroidism Current Visit: Yes Status: Acute Assessment and plan: History of hypothyroidism TSH is noted to be significantly elevated at 44.045 Free T3 and T4 pending Will continue levothyroxine. Qualifiers: Hypothyroidism type: unspecified Qualified Code(s): E03.9 - Hypothyroidism, unspecified (7) CAD (coronary artery disease), [place] coronary artery Current Visit: No Status: Chronic Assessment and plan: Strep CAD with numerous to placement in a CABG in the past We will continue her home plavix. Qualifiers: [place] vs. transplanted heart: [place] heart Associated angina: without angina Qualified Code(s): I25.10 - Atherosclerotic heart disease of [place] coronary artery without angina pectoris (8) DVT prophylaxis Current Visit: Yes Status: Acute Assessment and plan: SCDs (9) Hypertension Current Visit: Yes Status: Acute Assessment and plan: History of hypertension is on amlodipine home. Can continue home amlodipine Will continue 40 mg IV Lasix daily. Qualifiers: Hypertension type: essential hypertension Qualified Code(s): I10 - Essential (primary) hypertension - Time Spent With Patient Total time spent is greater than 50% in coordination of care (as documented) at patient's floor/unit and/or counseling patient: <Jeanette Barclay - Last Filed: 08/04/18 00:53> Date of Encounter: 08/03/18 All Systems PM: A 10-system review of systems was performed and is negative for pertinent findings except as documented above in the HPI. - Constitutional Vitals: Temp Pulse Resp BP Pulse Ox 97.8 F 57 16 102/67 94 08/03/18 23:28 08/03/18 23:28 08/03/18 23:28 08/03/18 23:28 08/03/18 23:28 Internal Med - H&P Results - Labs CBC & Chem 7: 08/03/18 18:44 08/03/18 18:10 Labs: Short CBC 08/03/18 Range/Units 18:44 WBC 3.6 L (4.3-11.1) K/mcL Hgb 8.6 L (11.5-15.4) g/dL Hct 26.9 L (35.3-44.9) % Plt Count 144 (140-400) K/mcL Neutrophils # 2.3 (1.6-8.9) K/mcL BMP 08/03/18 18:10 Sodium 142 Potassium 3.7 Chloride 103 Carbon Dioxide 32 H BUN 12 Creatinine 0.55 L Glucose 115 H Calcium 9.1 Cardiac Enzymes 08/03/18 Range/Units 18:10 Troponin I < 0.03 (< 0.04) ng/mL - Impressions ITS Impressions Chest X-Ray 08/03/18 16:55 IMPRESSION: Congestive heart failure D/ / Fernando Michaels MD / Fernando Michaels MD Interpreting Provider: Fernando Michaels MD - Assessment and Plan (1) CAD (coronary artery disease), [place] coronary artery Current Visit: No Status: Chronic Qualifiers: [place] vs. transplanted heart: [place] heart Associated angina: without angina Qualified Code(s): I25.10 - Atherosclerotic heart disease of [place] coronary artery without angina pectoris (2) CHF exacerbation Current Visit: Yes Status: Acute Qualifiers: Heart failure type: diastolic Qualified Code(s): I50.33 - Acute on chronic diastolic (congestive) heart failure (3) Lower extremity edema Current Visit: Yes Status: Acute (4) Anemia Current Visit: Yes Status: Acute Qualifiers: Anemia type: unspecified type Qualified Code(s): D64.9 - Anemia, unspe cified (5) Hematuria Current Visit: Yes Status: Acute Qualifiers: Hematuria type: unspecified type Qualified Code(s): R31.9 - Hematuria, unspecified (6) Fatigue Current Visit: Yes Status: Acute Qualifiers: Fatigue type: unspecified Qualified Code(s): R53.83 - Other fatigue (7) DVT prophylaxis Current Visit: Yes Status: Acute (8) Hypothyroidism Current Visit: Yes Status: Acute Qualifiers: Hypothyroidism type: unspecified Qualified Code(s): E03.9 - Hypothyroidism, unspecified (9) Hypertension Current Visit: Yes Status: Acute Qualifiers: Hypertension type: essential hypertension Qualified Code(s): I10 - Essential (primary) hypertension - Time Spent With Patient Total time spent is greater than 50% in coordination of care (as documented) at patient's floor/unit and/or counseling patient: - Attending Attestation I performed a history and physical exam of the patient on 08/03/18 and discussed management with the resident. I reviewed the resident's note and agree with the documented findings and plan of care. The patient will require management for fluid overload in the setting of heart failure exacerbation prompting the need for intravenous diuretic therapy and ongoing cardiac monitoring. SUSAN PENA.
[2018-08-03 23:14] LABS: Thyroid Stimulating Hormone 44.045 mcIU/mL (0.340-5.600)
[2018-08-03 23:24] LABS: Folate > 22.3 ng/mL (3.0-16.0); Vitamin B12 347 pg/mL (250-1100)
[2018-08-04 01:00] LABS: Bilirubin,Urine Negative (Negative); Blood,Urine Negative (Negative); Clarity,Urine Clear (Clear); Color,Urine Yellow (Yellow); Glucose,Urine (UA) Normal (Normal); Ketones,Urine Negative (Negative); Leukocyte Esterase,Urine Small (Negative); Nitrite,Urine Negative (Negative); PH,Urine 6.5 pH Units (5.0-8.0); Protein,Urine Negative (Neg-Trace); Specific Gravity,Urine 1.007 (1.010-1.025); Urobilinogen,Urine Normal (Normal)
[2018-08-04 01:23] LABS: Bacteria,Urine Few per hpf (None-Few); RBC,Urine 0-3 per hpf (0-3); Squamous Epithelial Cell,Urine Few per lpf (None-Few); Transitional Epi Cells,Urine Few per hpf (None-Few)
[2018-08-04 01:27] LABS: Triiodothyronine (T3) Free 2.51 pg/mL (2.50-3.90)
[2018-08-04 04:37] LABS: Basophils # 0.1 K/mcL (0.0-0.2); Basophils % 1.3 %; Eosinophils # 0.2 K/mcL (0.0-0.6); Eosinophils % 3.8 %; Hematocrit 28.6 % (35.3-44.9); Hemoglobin 8.8 g/dL (11.5-15.4); Immature Granulocytes % 2.3 % (0-4); Lymphocytes # 0.6 K/mcL (0.6-4.6); Lymphocytes % 15.3 %; Mean Corpuscular HGB Conc 30.8 g/dL (31.6-35.5); Mean Corpuscular Hemoglobin 33.2 pg (28.0-33.3); Mean Corpuscular Volume 107.9 fL (83.0-100.0); Mean Platelet Volume 9.7 fL (9.4-12.4); Monocytes # 0.5 K/mcL (0.0-1.3); Monocytes % 13.3 %; Neutrophils # 2.6 K/mcL (1.6-8.9); Platelet Count 171 K/mcL (140-400); Red Blood Count 2.65 M/mcL (3.82-4.97); Red Cell Distribution Width 21.6 % (11.5-14.5)
[2018-08-04 04:59] LABS: BUN/Creatinine Ratio 22 (6-26); Blood Urea Nitrogen 14 mg/dL (8-23); Calcium 9.1 mg/dL (8.6-10.3); Carbon Dioxide 34 mEq/L (23-29); Chloride 99 mEq/L (98-107); Glucose 119 mg/dL (70-105); Osmolality,Calculated 298 (280-300); Potassium 3.9 mEq/L (3.5-5.1); Sodium 143 mEq/L (136-145); eGFR For Non-African Americans > 60 (> 60)
[2018-08-04] MEDS ORDERED: amLODIPine 5 MG TABLET PO SCH (09:00)
[2018-08-04] MEDS ORDERED: Furosemide 40 MG/4 ML VIAL IVP SCH (09:00)
--- NOTE | 2018-08-04 13:09 | Internal Med Progress Note ---
Hospitalist Progress Note - Encounter Date of Encounter: 08/04/18 Time of Encounter: 12:30 - Subjective Interval History: Ms. Day is a 82 year old female with past medical history of hypertension, hypothyroidism, CAD, hyperlipidemia and diastolic CHF, who was presented to the ED complaining of worsening shortness of breath and lower extremity edema with 20 pound weight gain. She also c/o associated fatigue ongoing for the past 2 months. She denied orthopnea or PND. She also complained of two-week onset of urethral bleeding and has recently seen a urologist and is reported to have a UTI. She reports stopping her levothyroxine 2 months ago on her own as she felt she did not need it anymore. Her symptoms have progressed after she stopped taking her levothyroxine. In the ED her chest x-ray which showed pulmonary vascular congestion with pulmonary edema. Patient was admitted in the hospital and started her on IV diuretics. Pt stated she is feeling better today. Still have swelling in the legs and moderate SOB and GAVIRIA. - Exam Vitals: Temp Pulse Resp BP Pulse Ox 97.9 F 64 17 144/57 92 08/04/18 12:31 08/04/18 12:31 08/04/18 12:31 08/04/18 12:31 08/04/18 12:31 Exam: Gen: Alert, awake, Oriented to time,place and person Chest: Diminished breath sounds B/L, Mild wheezing, moderate crackles ++, No rales Heart: S1S2+ RRR No murmurs Abd: Soft, NT, BS +, No organomegaly Ext: 2+ pitting edema, pulses are palpable, No calf tenderness Neuro : Benign findings Skin: No rash. - Assessment and Plan (1) CHF exacerbation Current Visit: Yes Status: Acute Assessment and Plan: Mostly diastolic CHF exacerbation reviewed previous 2 D Echo showed preserved LVEF and diastolic dysfunction will cont diuresis..changed to Lasix 20mg IV BID strict I & O Started on Lisinopril d/c Norvasc - due to leg edema (2) Lower extremity edema Current Visit: Yes Status: Acute Assessment and Plan: Due to CHF d/c Norvasc cont Lasix (3) CAD (coronary artery disease), [place] coronary artery Current Visit: No Status: Chronic Assessment and Plan: No acute CP resumed home med Plavix and statin Unable to start BB since pt does have chronic bradycardia HR in 55-60's (4) Anemia Current Visit: Yes Status: Acute Assessment and Plan: stable chronic blood loss anemia denied any more hematuria need to fu with Urology as an out pt cont close monitoring (5) Hematuria Current Visit: Yes Status: Acute Assessment and Plan: Improving stable Hb Need to f/u with Urology as an out pt UA - looks abnormal started on abx Rocephin will talk to Urologist too (6) Fatigue Current Visit: Yes Status: Acute Assessment and Plan: Due to hypothyroidism continue levothyroxine, inc the dose to 175mcg need to repeat f/u TFT in 4 weeks (7) Hypertension Current Visit: Yes Status: Acute Assessment and Plan: d/c Norvasc due to leg edema started on Lisinopril on Lasix cont close monitoring (8) Hypothyroidism Current Visit: Yes Status: Acute Assessment and Plan: History of hypothyroidism TSH is noted to be significantly elevated at 44.045 Continue levothyroxine counseled to be compliance with her medication (9) DVT prophylaxis Current Visit: Yes Status: Acute Assessment and Plan: SCDs - Time Spent with Patient Total time spent is greater than 50% in coordination of care (as documented) at patient's floor/unit and/or counseling patient: Internal Medicine: Result - Labs CBC & Chem 7: 08/04/18 04:25 08/04/18 04:25 Labs: Short CBC 08/03/18 08/04/18 Range/Units 18:44 04:25 WBC 3.6 L 4.0 L (4.3-11.1) K/mcL Hgb 8.6 L 8.8 L (11.5-15.4) g/dL Hct 26.9 L 28.6 L (35.3-44.9) % Plt Count 144 171 (140-400) K/mcL Neutrophils # 2.3 2.6 (1.6-8.9) K/mcL BMP 08/03/18 08/04/18 18:10 04:25 Sodium 142 143 Potassium 3.7 3.9 Chloride 103 99 Carbon Dioxide 32 H 34 H BUN 12 14 Creatinine 0.55 L 0.64 Glucose 115 H 119 H Calcium 9.1 9.1 Cardiac Enzymes 08/03/18 Range/Units 18:10 Troponin I < 0.03 (< 0.04) ng/mL Urine 08/04/18 Range/Units 00:15 Urine Color Yellow (Yellow) Urine Clarity Clear (Clear) Urine pH 6.5 (5.0-8.0) pH Units Ur Specific [place] 1.007 L (1.010-1.025) Urine Protein Negative (Neg-Trace) mg/dL Urine Glucose (UA) Normal (Normal) mg/dL - ABG Interpretation ABG results: PT/INR, D-dimer PT 12.3 Seconds (9.4-12.1) H 08/03/18 18:10 - Impressions Impressions Chest X-Ray 08/03/18 16:55 IMPRESSION: Congestive heart failure D/ / Fernando Michaels MD / Fernando Michaels MD Interpreting Provider: Fernando Michaels MD Consult Discharge Plan - Plan Referrals: Juancho Patel DO [Primary Care Provider] - (1) CHF exacerbation Qualifiers: Heart failure type: diastolic Qualified Code(s): I50.33 - Acute on chronic diastolic (congestive) heart failure (3) CAD (coronary artery disease), [place] coronary artery Qualifiers: [place] vs. transplanted heart: [place] heart Associated angina: without angina Qualified Code(s): I25.10 - Atherosclerotic heart disease of [place] coronary artery without angina pectoris (4) Anemia Qualifiers: Anemia type: unspecified type Qualified Code(s): D64.9 - Anemia, unspecified (5) Hematuria Qualifiers: Hematuria type: unspecified type Qualified Code(s): R31.9 - Hematuria, un specified (6) Fatigue Qualifiers: Fatigue type: unspecified Qualified Code(s): R53.83 - Other fatigue (7) Hypertension Qualifiers: Hypertension type: essential hypertension Qualified Code(s): I10 - Essential (primary) hypertension (8) Hypothyroidism Qualifiers: Hypothyroidism type: unspecified Qualified Code(s): E03.9 - Hypothyroidism, unspecified
--- NOTE | 2018-08-04 15:11 | Electrocardiograph Report ---
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
--- NOTE | 2018-08-04 15:19 | Electrocardiograph Report ---
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
[2018-08-04] MEDS: cefTRIAXone 1,000 MG in Water for inj. (sterile) 20 ML 10 ML IVP SCH (15:34)
[2018-08-04] MEDS: Furosemide 20 MG/2 ML VIAL IVP SCH (17:45)
[2018-08-04] MEDS: ALPRAZolam 0.5 MG TABLET PO PRN (17:45)
[2018-08-05 06:23] LABS: BUN/Creatinine Ratio 20 (6-26); Blood Urea Nitrogen 14 mg/dL (8-23); Calcium 8.7 mg/dL (8.6-10.3); Carbon Dioxide 35 mEq/L (23-29); Chloride 100 mEq/L (98-107); Glucose 106 mg/dL (70-105); Magnesium 1.8 mg/dL (1.6-2.6); Osmolality,Calculated 295 (280-300); Potassium 3.5 mEq/L (3.5-5.1); Sodium 142 mEq/L (136-145); eGFR For Non-African Americans > 60 (> 60)
[2018-08-05] MEDS: cefTRIAXone 1,000 MG in Water for inj. (sterile) 20 ML 10 ML IVP SCH (08:50)
[2018-08-05] MEDS: Lisinopril 20 MG TABLET PO SCH (08:51)
[2018-08-05] MEDS: Furosemide 20 MG/2 ML VIAL IVP SCH ×2 (08:51→17:41)
--- NOTE | 2018-08-05 14:40 | Internal Med Progress Note ---
Hospitalist Progress Note - Encounter Date of Encounter: 08/05/18 Time of Encounter: 11:30 - Subjective Interval History: Ms. Day is a 82 year old female with past medical history of hypertension, hypothyroidism, CAD, hyperlipidemia and diastolic CHF, who was presented to the ED complaining of worsening shortness of breath and lower extremity edema with 20 pound weight gain. She also c/o associated fatigue ongoing for the past 2 months. She denied orthopnea or PND. She also complained of two-week onset of urethral bleeding and has recently seen a urologist and is reported to have a UTI. She reports stopping her levothyroxine 2 months ago on her own as she felt she did not need it anymore. Her symptoms have progressed after she stopped taking her levothyroxine. In the ED her chest x-ray which showed pulmonary vascular congestion with pulmonary edema. Patient was admitted in the hospital and started her on IV diuretics. Pt stated she is feeling better today. Still have swelling in the legs and moderate SOB and GAVIRIA. Pt is still very hypoxic, requiring 2 lit O2. - Exam Vitals: Temp Pulse Resp BP Pulse Ox 97.9 F 92 18 133/49 82 08/05/18 11:10 08/05/18 12:17 08/05/18 12:17 08/05/18 11:10 08/05/18 12:17 Exam: Gen: Alert, awake, Oriented to time,place and person Chest: Diminished breath sounds B/L, Mild wheezing, moderate crackles ++, No ral es Heart: S1S2+ RRR No murmurs Abd: Soft, NT, BS +, No organomegaly Ext: 2+ pitting edema, pulses are palpable, No calf tenderness Neuro : Benign findings Skin: No rash. - Assessment and Plan (1) CHF exacerbation Current Visit: Yes Status: Acute Assessment and Plan: Mostly diastolic CHF exacerbation reviewed previous 2 D Echo showed preserved LVEF and diastolic dysfunction will cont diuresis at Lasix 20mg IV BID strict I & O Had -2020 out put y/d Cont Lisinopril d/c Norvasc - due to leg edema If HR allows will add low dose BB too Patient does need to stay in the hospital more than 3 midnights due to her complex medical problems acute hypoxic respiratory failure with CHF exacerbation . So we will change her to full admission today. I did review my colleague Dr. Elabor's H & P including HPI, PMH, PSH, FH, SH, and ROS no changes noticed (2) Acute respiratory failure with hypoxia Current Visit: Yes Status: Acute Assessment and Plan: Due to CHF exacerbation may need home O2 eval (3) Lower extremity edema Current Visit: Yes Status: Acute Assessment and Plan: Due to CHF d/c Norvasc cont Lasix (4) CAD (coronary artery disease), [place] coronary artery Current Visit: No Status: Chronic Assessment and Plan: No acute CP resumed home med Plavix and statin Unable to start BB since pt does have chronic bradycardia HR in 55-60's (5) Anemia Current Visit: Yes Status: Acute Assessment and Plan: stable chronic blood loss anemia denied any more hematuria talked to urologist recommend to f/u with him as an out pt cont close monitoring (6) Hematuria Current Visit: Yes Status: Acute Assessment and Plan: Improving stable Hb Need to f/u with Urology as an out pt UA - looks abnormal Urine cx no growth will d/c abx Rocephin (7) Fatigue Current Visit: Yes Status: Acute Assessment and Plan: Due to hypothyroidism continue levothyroxine, inc the dose to 175mcg need to repeat f/u TFT in 4 weeks (8) Hypertension Current Visit: Yes Status: Acute Assessment and Plan: d/c Norvasc due to leg edema started on Lisinopril on Lasix cont close monitoring (9) Hypothyroidism Current Visit: Yes Status: Acute Assessment and Plan: History of hypothyroidism TSH is noted to be significantly elevated at 44.045 Continue levothyroxine counseled to be compliance with her medication (10) DVT prophylaxis Current Visit: Yes Status: Acute Assessment and Plan: SCDs - Time Spent with Patient Total time spent is greater than 50% in coordination of care (as documented) at patient's floor/unit and/or counseling patient: Internal Medicine: Result - Labs CBC & Chem 7: 08/04/18 04:25 08/05/18 05:43 Labs: BMP 08/05/18 05:43 Sodium 142 Potassium 3.5 Chloride 100 Carbon Dioxide 35 H BUN 14 Creatinine 0.70 Glucose 106 H Calcium 8.7 - ABG Interpretation ABG results: PT/INR, D-dimer PT 12.3 Seconds (9.4-12.1) H 08/03/18 18:10 - Impressions Impressions Echocardiogram 08/03/18 22:57 Impressions: LVEF 60%. Normal LV chamber size, wall thickness and function. Atypical septal motion consistent with bundle branch block. Moderate left ventricular diastolic dysfunction. Normal right ventricular structure and function. No evidence of pulmonary hypertension. No significant valvular dysfunction. Left Ventricular Wall Motion: Rest Echo Findings All wall segments showed normal motion. Findings: Study Quality * Technically sub-optimal due to poor echocardiographic windows. ECG Findings * Sinus rhythm with BBB. Left Ventricle * LVEF 60%. * Normal LV chamber size, wall thickness and function. * Atypical septal motion consistent with bundle branch block. * Moderate left ventricular diastolic dysfunction. Right Ventricle * Normal right ventricular structure and function. Left Atrium * Moderately dilated left atrium. Right Atrium * Normal right atrial size. Aortic Valve * Aortic valve not well visualized. * Mildly calcified aortic valve leaflets. * No aortic regurgitation. * No aortic stenosis. Mitral Valve * Mild mitral annular calcification * No mitral stenosis. * No mitral regurgitation. Tricuspid Valve * Normal tricuspid valve structure and function. * Trace tricuspid regurgitation. * No evidence of pulmonary hypertension. Pulmonic Valve * Pulmonic valve is not well visualized. * No pulmonic regurgitation. Aorta * Normally sized aortic root. Pericardium * The pericardium appears normal. IVC * Normal IVC dimensions and inspiratory collapse. Pulmonary Artery * Normal visualized portions of the main pulmonary artery. Consult Discharge Plan - Plan Referrals: Juancho Patel DO [Primary Care Provider] - (Please call and schedule hospital follow up appointment for 7-10 days from date of discharge. ) (1) CHF exacerbation Qualifiers: Heart failure type: diastolic Qualified Code(s): I50.33 - Acute on chronic diastolic (congestive) heart failure (4) CAD (coronary artery disease), [place] coronary artery Qualifiers: [place] vs. transplanted heart: [place] heart Associated angina: without angina Qualified Code(s): I25.10 - Atherosclerotic heart disease of [place] coronary artery without angina pectoris (5) Anemia Qualifiers: Anemia type: unspecified type Qualified Code(s): D64.9 - Anemia, unspecified (6) Hematuria Qualifiers: Hematuria type: unspecified type Qualified Code(s): R31.9 - Hematuria, unspecified (7) Fatigue Qualifiers: Fatigue type: unspecified Qualified Code(s): R53.83 - Other fatigue (8) Hypertension Qualifiers: Hypertension type: essential hypertension Qualified Code(s): I10 - Essential (primary) hypertension (9) Hypothyroidism Qualifiers: Hypothyroidism type: unspecified Qualified Code(s): E03.9 - Hypothyroidism, unspecified
[2018-08-05] MEDS: ALPRAZolam 0.5 MG TABLET PO PRN (21:56)
[2018-08-06 04:36] LABS: Hematocrit 28.4 % (35.3-44.9); Hemoglobin 8.9 g/dL (11.5-15.4)
[2018-08-06 04:52] LABS: BUN/Creatinine Ratio 21 (6-26); Blood Urea Nitrogen 15 mg/dL (8-23); Carbon Dioxide 35 mEq/L (23-29); Chloride 98 mEq/L (98-107); Glucose 101 mg/dL (70-105); Osmolality,Calculated 297 (280-300); Potassium 3.9 mEq/L (3.5-5.1); Sodium 143 mEq/L (136-145); eGFR For Non-African Americans > 60 (> 60)
[2018-08-06 06:38] VITALS: BP 118/49
[2018-08-06] MEDS: Furosemide 20 MG/2 ML VIAL IVP SCH (07:45)
[2018-08-06] MEDS: Lisinopril 20 MG TABLET PO SCH (07:45)
[2018-08-06] MEDS: ALPRAZolam 0.5 MG TABLET PO PRN (07:46)
--- NOTE | 2018-08-06 10:05 | Discharge Summary ---
- NOTES TO OUTPATIENT PROVIDER Notes to Outpatient Provider: Follow up with PCP in one week. Please start taking Lisinopril 20mg PO Daily for your BP. Please start taking Lasix 40 mg PO Daily for your leg edema and shortness of breath. Please start taking Levothyroxine 150mcg PO Daily again for your hypothyroidism. You need to go for follow-up thyroid function test in 4 weeks. Please don't take Norvasc, since it does cause leg edema. Please stop taking Orders not resulted at time of discharge: Pending orders 08/03/18 19:53 Occult Blood,Stool [BF] Stat Date of Encounter: 08/06/18 Time of Encounter: 10:01 - Discharge Diagnosis (1) CHF exacerbation Priority: Primary Status: Acute Qualifiers: Heart failure type: diastolic Qualified Code(s): I50.33 - Acute on chronic diastolic (congestive) heart failure (2) Acute respiratory failure with hypoxia Priority: Primary Status: Acute (3) Lower extremity edema Priority: Primary Status: Acute (4) CAD (coronary artery disease), [place] coronary artery Priority: Secondary Status: Chronic Qualifiers: [place] vs. transplanted heart: [place] heart Associated angina: without angina Qualified Code(s): I25.10 - Atherosclerotic heart disease of [place] coronary artery without angina pectoris (5) Anemia Priority: Secondary Status: Acute Qualifiers: Anemia type: unspecified type Qualified Code(s): D64.9 - Anemia, unspecified (6) Hematuria Priority: Secondary Status: Acute Qualifiers: Hematuria type: unspecified type Qualified Code(s): R31.9 - Hematuria, unspecified (7) Fatigue Priority: Secondary Status: Acute Qualifiers: Fatigue type: unspecified Qualified Code(s): R53.83 - Other fatigue (8) Hypertension Priority: Secondary Status: Acute Qualifiers: Hypertension type: essential hypertension Qualified Code(s): I10 - Essential (primary) hypertension (9) Hypothyroidism Priority: Secondary Status: Acute Qualifiers: Hypothyroidism type: unspecified Qualified Code(s): E03.9 - Hypothyroidism, unspecified (10) DVT prophylaxis Priority: Secondary Status: Acute Hospital course: Ms. Day is a 82 year old female with past medical history of hypertension, hypothyroidism, CAD, hyperlipidemia and diastolic CHF, who was presented to the ED complaining of worsening shortness of breath and lower extremity edema with 20 pound weight gain. She also c/o associated fatigue ongoing for the past 2 months. She denied orthopnea or PND. She also complained of two-week onset of urethral bleeding and has recently seen a urologist and is reported to have a UTI. She reports stopping her levothyroxine 2 months ago on her own as she felt she did not need it anymore. Her symptoms have progressed after she stopped taking her levothyroxine. In the ED her chest x-ray which showed pulmonary vascular congestion with pulmonary edema. Patient was admitted in the hospital and started her on IV diuretics. I had discontinued her Norvasc and placed her on lisinopril for blood pressure. Her echocardiogram showed preserved LVEF and moderate left ventricular diastolic dysfunction. Patient is still hypoxic requiring 2 lit oxygen. However clinically patient seems to be better today. She lost 7 KG bodyweight with aggressive IV diuresis. Unable to start her on beta amalia due to her low heart rate. Recommend to follow up with the primary care doctor any week. She also have severe hypothyroidism with TSH at 44. Apparently patient stopped taking her levothyroxine for 2 months. So I did [employer] counselor her about medication compliance. I started her on levothyroxine 150 g to go home. Her hematuria seems to be improving. Her hemoglobin stayed stable around 8.9. - Time Spent with Patient Total time spent providing and/or coordinating discharge services: - Discharge Medications Prescriptions: New Furosemide [Lasix] 40 mg PO DAILY #30 tablet Levothyroxine [Synthroid] 150 mcg PO DAILY #30 tablet Lisinopril [Zestril] 20 mg PO DAILY #30 tablet Continue ALPRAZolam [Xanax 0.5 MG Tablet] 0.5 mg PO BID PRN PRN Reason: Anxiety Clopidogrel [Plavix] 75 mg PO DAILY Atorvastatin [Lipitor] 40 mg PO DAILY Atorvastatin Calcium [Lipitor] 20 mg PO DAILY Folic Acid 1 mg PO DAILY Polyethylene Glycol 3350 [Natura-Lax] 17 gm PO BID PRN PRN Reason: Constipation Methotrexate [Otrexup] 15 mg PO MO Discontinued Levothyroxine [Synthroid] 125 mcg PO QAM Amlodipine Besylate 10 mg PO DAILY Home Medications: ALPRAZolam [Xanax 0.5 MG Tablet] 0.5 mg PO BID PRN 01/06/18 [History] Clopidogrel [Plavix] 75 mg PO DAILY 01/06/18 [History] Atorvastatin Calcium [Lipitor] 20 mg PO DAILY 08/06/18 [History] Atorvastatin [Lipitor] 40 mg PO DAILY 08/06/18 [History] Folic Acid 1 mg PO DAILY 08/06/18 [History] Furosemide [Lasix] 40 mg PO DAILY #30 tablet 08/06/18 [Rx] Levothyroxine [Synthroid] 150 mcg PO DAILY #30 tablet 08/06/18 [Rx] Lisinopril [Zestril] 20 mg PO DAILY #30 tablet 08/06/18 [Rx] Methotrexate [Otrexup] 15 mg PO MO 08/06/18 [History] Polyethylene Glycol 3350 [Natura-Lax] 17 gm PO BID PRN 08/06/18 [History] Allergies/Adverse Reactions: Allergy/AdvReac Type Severity Reaction Status Date / Time Iodinated Contrast- Oral and Allergy See Verified 08/06/18 09:30 IV Dye Comments Date of admission: 08/05/18 14:43 Primary care physician: Juancho Patel Consults: 08/04/18 09:12 Consult to Nurse Navigator [CONS] Routine Comment: CHF - Constitutional Vitals: Temp Pulse Resp BP Pulse Ox 97.7 F 49 20 118/49 93 08/06/18 06:36 08/06/18 06:36 08/06/18 06:36 08/06/18 06:36 08/06/18 06:36 General appearance: Present: A&O X 3, no acute distress, answers questions appropriately Exam: Gen: Alert, awake, Oriented to time,place and person Chest: Diminished breath sounds B/L, No wheezing, No crackles, No rales Heart: S1S2+ RRR No murmurs Abd: Soft, NT, BS +, No organomegaly Ext: 1 + edema, pulses are palpable, No calf tenderness Neuro : Benign findings Skin: No rash. - Patient Status Disposition: Home, Self-Care Condition: Good Overall status at discharge: patient is back to baseline - Discharge Instructions Follow Up With: Juancho Patel DO [Primary Care Provider] - (Please call and schedule hospital follow up appointment for 7-10 days from date of discharge. ) - Diet and Activity Activity: increase activity as tolerated, wear oxygen at all times Diet: low salt diet
== END 2018-08-06 12:44 | disposition home or self-care (01) | DRG 291 ==
LOC: 3BNU 15:51 → EMEROOARM 15:51 → SUATTDRO 22:05 → 3BNU 22:45
PROVIDERS: ADMIT Internal Medicine; ATTEND Family Medicine